=== PATIENT | female | born 1955 | race Caucasian/White ===

== ENCOUNTER 2019-05-05 00:18 | Outpatient (CLI) | payer OTHER, SELFPAY ==
--- NOTE | 2019-05-05 16:00 | DI.MAMMO_ITS ---
SYMPTOM/DIAGNOSIS: SCREENING,Z12.31 MAMMOGRAMS: Mammograms were interpreted according to the usual protocol including computer analysis with CAD system, tomosynthesis and C view imaging. The breasts are of moderate density with fairly symmetrical distribution of fibroglandular tissue. No dominant mass or clumped microcalcification is identified in either breast. Current examination is compared with previous examinations including 03/2018 and there has been no gross interval change in appearance in comparison with the previous studies. CONCLUSION: No specific evidence of malignancy at this time. Routine screening examinations are suggested at yearly intervals in this age group according to the ACS/ACR guidelines. Category 1. Breast density, Category B. MQSA ASSESSMENT OF FINDINGS: Negative. Category 1. Patient will receive a letter notifying them of these results. BI-RADS category B. There are scattered areas of fibroglandular density.
== END 2019-05-05 00:38 ==
PROVIDERS: PCP Family Medicine; Visit Provider Nurse Practitioner Family
DX: Z12.31 Encounter for screening mammogram for malignant neoplasm of breast (principal)
CPT/HCPCS: 77063; 77067

== ENCOUNTER 2020-08-19 02:21 | Outpatient (CLI) | payer OTHER, SELFPAY ==
[2020-08-19 11:15] LABS: Calculated LDL 200 mg/dL (<100); Cholesterol 286 mg/dL (<200); Glucose 95 mg/dL (74-106); HDL Cholesterol 75 mg/dL (40-60); Triglyceride 57 mg/dL (<150)
== END 2020-08-19 02:41 ==
PROVIDERS: PCP Family Medicine; Visit Provider Nurse Practitioner Family
DX: Z13.1 Encounter for screening for diabetes mellitus (principal); Z13.220 Encounter for screening for lipoid disorders
CPT/HCPCS: 36415; 80061; 82947

== ENCOUNTER 2020-08-19 02:50 | Outpatient (CLI) | payer OTHER, SELFPAY ==
--- NOTE | 2020-08-19 10:30 | DI.MAMMO_ITS ---
EXAM: MAMMO SCREENING CLINICAL HISTORY: screening TECHNIQUE: Mammograms were interpreted according to the usual protocol including computer analysis w [employer] CAD system, tomosynthesis and C-view imaging. COMPARISON: 2010 through 2018 FINDINGS: The breasts are composed of scattered fibroglandular densities, Breast Density category B. No suspicious masses or suspicious microcalcifications are seen. No skin thickening or abnormal axillary lymph nodes are seen. There has been no significant change from prior exams. IMPRESSION: BI-RADS Category 1, Negative mammogram Yearly screening mammography is recommended. Breast Density - Category B, scattered fibroglandular densities. A negative radiographic report should not delay biopsy if a dominant or clinically suspicious mass is present. Up to ten percent of cancers are not identified on mammography. A negative report may reinforce clinical impression. Adenosis and dense breasts may obscure an underlying neoplasm. False positive reports average 6 to 10%. Patient will receive a letter notifying them of these results.
== END 2020-08-19 03:10 ==
PROVIDERS: PCP Family Medicine; Visit Provider Nurse Practitioner Family
DX: Z12.31 Encounter for screening mammogram for malignant neoplasm of breast (principal)
CPT/HCPCS: 77063; 77067

== ENCOUNTER 2021-09-12 08:31 | Outpatient (CLI) | payer MEDICARE, SELFPAY ==
--- NOTE | 2021-09-12 11:38 | DI.MAMMO_ITS ---
Exam(s) MAMMO SCREENING EXAM: MAMMO SCREENING CLINICAL HISTORY: SCREENING, Z12.39 TECHNIQUE: Mammograms were interpreted according to the usual protocol including computer analysis w [employer] CAD system, tomosynthesis and C-view imaging. COMPARISON: 2011 through 2019 FINDINGS: The breasts are composed of scattered fibroglandular densities, Breast Density category B. No suspicious masses or suspicious microcalcifications are seen. No skin thickening or abnormal axillary lymph nodes are seen. There has been no significant change from prior exams. IMPRESSION: BI-RADS Category 1, Negative mammogram Yearly screening mammography is recommended. Breast Density - Category B, scattered fibroglandular densities. A negative radiographic report should not delay biopsy if a dominant or clinically suspicious mass is present. Up to ten percent of cancers are not identified on mammography. A negative report may reinforce clinical impression. Adenosis and dense breasts may obscure an underlying neoplasm. False positive reports average 6 to 10%. Patient will receive a letter notifying them of these results.
== END 2021-09-12 08:51 ==
PROVIDERS: PCP Family Medicine; Visit Provider Nurse Practitioner Family
DX: Z12.31 Encounter for screening mammogram for malignant neoplasm of breast (principal)
CPT/HCPCS: 77063; 77067

== ENCOUNTER → 2022-09-21 00:45 | Outpatient (CLI) | payer MEDICARE, SELFPAY ==
--- OUTSIDE RECORDS SUMMARY | 2022-09-21 00:49 | XMS_ITS | Encounter Summary ---
:1955 Author Organization [facility] Address [address] [place] [address] Care Team Providers Name Role Phone Rodrigo Smith MD Primary Care Provider Unavailable Encounter Details Date Type Department Care Team Description 01/23/2012 Results Only [facility] Gin Harry NP Laboratory Services - [address] [phone] Social History Tobacco Use Types Packs/Day Years Used Date Smoking Tobacco: Never Assessed Sex Assigned at Date Recorded Not on file documented as of this encounter Plan of Treatment Not on filedocumented as of this encounter Procedures Procedure Name Priority Date/Time Associated Diagnosis Comme nts PAP TEST- RESULT Routine 01/23/2012 0:00 EDT Resu lts for this ONLY procedure are i n the results section. documented in this encounter Results PAP TEST- RESULT ONLY (01/23/2012 0:00 EDT) Component Value Ref Test Analysis Performed At [facility] Range Method Time Signature Pathology CYTOPATHOLOGY REPORT [facility] Report: [facility] Reports generated via electronic interface contain original data; however they are lacking the format of the original report. Caution should be taken when reading/interpreting unformatte d reports. Name: ? INEZ EGAN ? Accession #: ? [id number] ? : ? 1955 (Age: 56) ??F ?Collect Da te: ? 01/23/2012 ? Location: ? [facility] ? Receive Date: ? 01/24/2012 ? Provider: GIN HARRY PROOF INSPECTOR Copy to: RODRIGO SMITH MD ? Final Report SPECIMEN ADEQUACY ? Satisfactory for Evaluation - assessment of transformation zone component not appl icable ( e.g. atrophy, vaginal sample, hysterectomy) GENERAL CATEGORIZATION ? Negative for Intraepithelial Lesion or Malignancy ?? Last Menstural Period: 09/05 Previous Gynecologic Pathology: ASC-US: Benign cellular changes: ASC-US: 07/02 HPV neg. Treatment History: Colposcopy: Other: Additional clinical information: Paps neg. since Specimen/Source: ??Pap Test, Cervix/Endocervix, ThinPr ep Imaging System with manual evaluation Document reviewed and electronically signed by: ? Elroy Foster, CT(ASCP) ? Report ??Date: 01/29/2012 14:17 HPV with Pap Test ? Date Ordered: ? 01/28/2012 ? Status: ?? Bhavya d Out ?Date Complete: ? 01/31/2012 ? By: ??System Interface ? Date Reported: ? 01/31/2012 ? Interpretation RESULT: Negative for HPV types 16, 18, 31, 33, 35, 39, 45, 5 1, 52, 56, 58, 59, and 68. Comments Document reviewed and electronically signed by: ? System Interface ? Report date: 01/31/2012 By the signature above, the attending physician certifies th at he/she has personally conducted a gross and/or microscopic examin ation of the described specimens and rendered or confirmed the above diagnosis. End of Report Specimen (Source) Anatomical Location Collection Method / Collectio n Time Received Time / Laterality Volume 01/23/2012 01/24/2012 Gin Harry NP PATHOLOGY ORDERABLES Performing Organization Address City/State/ZIP Code Phon e Number [facility] [address] [place] [address] SERVICES [facility] [address] [place] [address] documented in this encounter Visit Diagnoses Not on filedocumented in this encounter Care Teams Dairy Feed Sales Consultant Relationship Specialty Start Date End Date Rodrigo Smith MD PCP - General 03/01/09 documented as of this encounter
--- OUTSIDE RECORDS SUMMARY | 2022-09-21 00:49 | XMS_ITS | Encounter Summary ---
:1955 Author Organization [facility] Address [address] [place] [address] Care Team Providers Name Role Phone Unavailable Primary Care Provider Unavailable Encounter Details Date Type Department Care Team Description 02/28/2009 Orders Only [facility] Yosi Cooper MD [address] [address] [place], [place] [address] [phone] Social History Tobacco Use Types Packs/Day Years Used Date Smoking Tobacco: Never Assessed Sex Assigned at Date Recorded Not on file documented as of this encounter Plan of Treatment Not on filedocumented as of this encounter Procedures Procedure Name Priority Date/Time Associated Diagnosis Comme nts SURGICAL PATHOLOGY Routine 02/28/2009 0:00 EDT Re sults for this procedure are i n the results section. documented in this encounter Results SURGICAL PATHOLOGY (02/28/2009 0:00 EDT) Component Value Ref Test Analysis Performed At [facility] Method Time Signature Pathology SURGICAL PATHOLOGY REPORT ? [facility] Report: Reports generated via electr [employer] interface contain original data; ? [facility] however they are lacking the format of the original report. ? Caution should be taken when reading/interpreting unformatted reports. ? Name: ? JIGNESH, INEZ F ? Accession #: ? [id number] ? : ? 1955 (Age: 53) ??F ? Collec t Date: ? 02/28/2009 ? Location: ? [facility] ? R eceive Date: ? 02/28/2009 ? Provider: YOSI WALKO MD ? Copy to: THIEN SMITH MD ? Final Pathologic Diagnosis: ? Colon, descending, 45 cm, biopsy: ? - Colonic mucosa with increa sed intraepithelial lymphocytes and focal epithelial damage. ??See comment. ? Comment: ? There is a prominent lymphoid aggregate present, which may represent the ?? clinically identified thick ened fold; however, the background colonic mucosa ?? is abnormal with increased i ntraepithelial lymphocytes with focal flattening of the epithelium. ??These find ings are consistent with the diagnosis of lymphocytic colitis and may be seen in a ssociation with celiac disease, non-gluten food ? hypersensitivity, and/or jason g side effects. ??Clinical correlation is ? recommended. ??(Dr. Browning)/ elio ? Document reviewed and electr onically signed by: ? Lashonda Rodríguez MD ? Report ??Date: 03/01/2009 12 :28 ? By the signature above, the attending physician certifies that he/she has ? personally conducted a gross and/or microscopic examination of the described ? specimens and rendered or co nfirmed the above diagnosis. ? Specimen(s) Received: ? Bx 45 cm descending c olon ??thickened fold ? Clinical History: ? H/O colon adenomas ? Gross Description: ? Received in [facility]' s fixative labelled Jignesh, Inez and biopsy 45 cm ?? descending colon ??thickened fold is a single, mcconnell, irregular soft tissue ? measuring 0.3 x 0.3 x 0.3 cm . ??This is entirely submitted in one cassette. ??(Dr. Villagran)/[facility] ? End of Report ? Specimen (Source) Anatomical Collection Method Collection Time Re ceived Time Location / / Volume Laterality 02/28/2009 02/28/2009 15:2 5 EDT Yosi Minaya MD PATHOLOGY ORDERABLES Performing Organization Address City/State/ZIP Code Phon e Number [facility] [address] [place] [address] SERVICES [facility] [address] [place] [address] documented in this encounter Visit Diagnoses Not on filedocumented in this encounter
--- OUTSIDE RECORDS SUMMARY | 2022-09-21 00:49 | XMS_ITS | Encounter Summary ---
:1955 Author Organization [facility] Address [address] [place] [address] Care Team Providers Name Role Phone Rodrigo Castro MD Primary Care Provider Unavailable Encounter Details Date Type Department Care Team Description 03/31/2015 Results Only [facility]- [facility] Eloise Drake, [facility] [phone] [facility] [place] [address] (Wo rk) Social History Tobacco Use Types Packs/Day Years Used Date Smoking Tobacco: Never Assessed Sex Assigned at Date Recorded Not on file documented as of this encounter Plan of Treatment Not on filedocumented as of this encounter Procedures Procedure Name Priority Date/Time Associated Diagnosis Comme nts PAP TEST- RESULT Routine 03/31/2015 0:00 EDT Resu lts for this ONLY procedure are i n the results section. documented in this encounter Results PAP TEST- RESULT ONLY (03/31/2015 0:00 EDT) Component Value Ref Test Analysis Performed At [facility] Method Time Signature Pathology CYTOPATHOLOGY REPORT [facility] Report: CENTER Reports generated via electronic interface contain origina l data; LABORATORY however they are lacking the format of the original report. SERVICES Caution should be taken when reading/interpreting unformatte d reports. Name: ? INEZ EGAN ? Accession #: ? [id number] ? : ? 1955 (Age: [age]) ??F ?Collect Date: ? 2014 ? Location: ? [facility] ? Receive Date: ? 04/01/2015 ? Provider: ELOISE ARCE Copy to: ALLI MACDONALD MD ? Final Report SPECIMEN ADEQUACY ? Satisfactory for Evaluation - transformation zone component present - scant squamous epithelial component secondary to excessive mucus GENERAL CATEGORIZATION ? Negative for Intraepithelial Lesion or Malignancy ?? Last Menstrual Period: 5 years ago Specimen/Source: ??Pap Test, Cervix/Endocervix, ThinPr ep Imaging System with manual evaluation Document reviewed and electronically signed by: ? Elroy Foster, CT(ASCP) ? Report ??Date: 04/07/2015 11:28 HPV with Pap Test ? Date Ordered: ? 04/07/2015 ? Status: ?? Signed Out ?Date Complete: ? 04/11/2015 ? By: ??System I nterface ? Date Reported: ? 04/11/2015 ? Interpretation RESULT: Negative for HPV. No E6 or E7 mRNA is detected from HPV types 16,18,31,33,35, 39,45,51,52,56,58,59,66, and 68 by psychologist research assistant mediated amplification. Comments Document reviewed and electronically signed by: ? System Interface ? Report date: 04/11/2015 By the signature above, the attending physician certifies th at he/she has personally conducted a gross and/or microscopic examin ation of the described specimens and rendered or confirmed the above diagnosis. End of Report Specimen (Source) Anatomical Location Collection Method / Collectio n Time Received Time / Laterality Volume 03/31/2015 04/01/2015 Eloise E Noelle MINER PATHOLOGY ORDERABLES Performing Organization Address City/State/ZIP Code Phon e Number [facility] [address] [place] [address] SERVICES documented in this encounter Visit Diagnoses Not on filedocumented in this encounter Care Teams Security Sales Manager Relationship Specialty Start Date End Date Rodrigo Castro MD PCP - General 03/01/09 documented as of this encounter
--- OUTSIDE RECORDS SUMMARY | 2022-09-21 00:49 | XMS_ITS | Encounter Summary ---
:1955 Author Organization [facility] Address [address] [place] [address] Care Team Providers Name Role Phone Rodrigo Castro MD Primary Care Provider Unavailable Encounter Details Date Type Department Care Team Description 04/10/2018 Results Only [facility]- [facility] Eloise Drake, [facility] [phone] [facility] [place] [address] (Wo rk) Social History Tobacco Use Types Packs/Day Years Used Date Smoking Tobacco: Never Assessed Sex Assigned at Date Recorded Not on file documented as of this encounter Plan of Treatment Not on filedocumented as of this encounter Procedures Procedure Name Priority Date/Time Associated Diagnosis Comme nts PAP TEST- RESULT Routine 04/10/2018 0:00 EDT Resu lts for this ONLY procedure are i n the results section. documented in this encounter Results PAP TEST- RESULT ONLY (04/10/2018 0:00 EDT) Component Value Ref Test Analysis Performed At [facility] Method Time Signature Pathology CYTOPATHOLOGY REPORT [facility] Report: CENTER Reports generated via electronic interface contain origina l data; LABORATORY however they are lacking the format of the original report. SERVICES Caution should be taken when reading/interpreting unformatte d reports. Name: ? INEZ EGAN ? Accession #: ? [id number] ? : ? 1955 (Age: [age]) ??F ?Collect Date: ? 04/10/2018 ? Location: ? [facility] ? Receive Date: ? 04/11/2018 ? Provider: ELOISE DRAKE CLINICAL LABORATORY MANAGER Copy to: ALLI MACDONALD MD ? Final Report SPECIMEN ADEQUACY ? Satisfactory for Evaluation - transformation zone component present - scant squamous epithelial component GENERAL CATEGORIZATION ? Negative for Intraepithelial Lesion or Malignancy ?? Last Menstrual Period: age 54 Specimen/Source: ??Pap Test, Cervix/Endocervix, ThinPr ep Imaging System with manual evaluation Document reviewed and electronically signed by: ? Lashonda Henning, CT(ASCP) ? Report ??Date: 04/18/2018 09:49 HPV with Pap Test ? Date Ordered: ? 04/18/2018 ? Status: ?? Signed Out ?Date Complete: ? 04/21/2018 ? By: ??System I nterface ? Date Reported: ? 04/21/2018 ? Interpretation RESULT: Negative for HPV. No E6 or E7 mRNA is detected from HPV types 16,18,31,33,35, 39,45,51,52,56,58,59,66, and 68 by internist medical doctor md mediated amplification. Comments Document reviewed and electronically signed by: ? System Interface ? Report date: 04/21/2018 By the signature above, the attending physician certifies th at he/she has personally conducted a gross and/or microscopic examin ation of the described specimens and rendered or confirmed the above diagnosis. End of Report Specimen (Source) Anatomical Location Collection Method / Collectio n Time Received Time / Laterality Volume 04/10/2018 04/11/2018 Eloise Drake CLINICAL LABORATORY MANAGER PATHOLOGY ORDERABLES Performing Organization Address City/State/ZIP Code Phon e Number [facility] [address] [place] [address] SERVICES documented in this encounter Visit Diagnoses Not on filedocumented in this encounter Care Teams Home Insurance Agent Relationship Specialty Start Date End Date Rodrigo Castro MD PCP - General 03/01/09 documented as of this encounter
--- OUTSIDE RECORDS SUMMARY | 2022-09-21 00:50 | XMS_ITS | Encounter Summary ---
:1955 Author Organization [facility] [place] [address] Care Team Providers Name Role Phone Pasha, [place] GUPTA Primary Care Provider Reason for Visit Reason Comments Skin Check Encounter Details Date Type Department Care Team Description 09/28/2013 Office Visit Dermatology at Rodri Crow P[place] is (Primary [place] Dx) [address] [facility] [place] DERMATOLOGY [place], [place] [id number] [phone] Social History Tobacco Use Types Packs/Day Years Used Date Smoking Tobacco: Never Sex Assigned at Date Recorded Not on file documented as of this encounter Progress Notes Rodri Crow MD - 09/28/2013 12:00 PM EST Problem: Dermatitis behind ears and at base of occipital scalp. Inez follows up after last seeing me in 2004 for an urticarial allergic reaction. I had seen her prior to that for eczematous dermatitis. She has noted issues with itching and scaling behind both ears that is becoming more and more symptomatic and spreading and involving more and more of the area behind her ears, despite Cortaid yzyv-[id number]-[id number] cream. She also has a painful area on the lower nape of the neck that she is unable to have respond to the Cortaid. She denies any family history of psoriasis. She is otherwise well. She is on no medications. She is otherwise healthy and denies any significant recent stress. She uses a salon Biolage shampoo product when she shampoos on a roughly daily basis. Physical examination reveals a pleasant 58-year-old woman who has discrete erythema and scaling in the postauricular sulcus running along the entire length of the postauricular scalp. She does have some minor fissuring involved here as well. On the lower occipital scalp, she has a quarter-sized hyperkeratotic plaque, which has a psoriasiform appearance. The patient's fingernails have yoruba on them and I am unable to comment on pitting of the nails. She does not have any stigmata of psoriasis on the elbows or knees. She has no erythema or scaling on the nasolabial folds or in the glabella areas. Assessment and Plan: 1. 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 a. Recommend clobetasol cream, applying b.i.d. to affected areas until rash clears and then taper and DC, 30 grams dispensed with one refill. b. Recommend the use of ketoconazole shampoo using a q.o. shampoo basis, alternating with the Biolage shampoo, and rinsing out after three minutes, 120 mL dispensed with five refills. c. I expect that this will likely bring about good level of control of the dermatitis and hopefully clear it for her. She has no previous history of psoriasis, so hopefully this will go back in remission. We discussed, however, the possibility that it may be a chronic condition requiring p.r.n. applications of the cream and p.r.n. use of the shampoo. She will call me if there is no improvement. documented in this encounter Plan of Treatment Upcoming Encounters Date Type Specialty Care Team Description 10/12/2022 Office Visit Dermatology Rdori Crow MD [address] [facility] DERMATOLOGY [place], [place] [address] (Wo rk) documented as of this encounter Visit Diagnoses Diagnosis Psoriasis - Primary Other psoriasis documented in this encounter Care Teams Nursing Project Coordinator Relationship Specialty Start Date End Date [place] Pak DO PCP - General 09/28/[address] [place] [address] documented as of this encounter
--- OUTSIDE RECORDS SUMMARY | 2022-09-21 00:50 | XMS_ITS | Encounter Summary ---
:1955 Author Organization [facility] Address [address] [place] [address] Care Team Providers Name Role Phone Rodrigo Castro MD Primary Care Provider Unavailable Encounter Details Date Type Department Care Team Description 06/23/2003 Results Only [facility] - Gin Steinberg NP conversion [address] [place] [address] Social History Tobacco Use Types Packs/Day Years Used Date Smoking Tobacco: Never Assessed Sex Assigned at Date Recorded Not on file documented as of this encounter Plan of Treatment Not on filedocumented as of this encounter Procedures Procedure Name Priority Date/Time Associated Diagnosis Comme nts CYTOPATHOLOGY Routine 06/23/2003 0:00 EDT Results for this procedure are i n the results section . documented in this encounter Results CYTOPATHOLOGY (06/23/2003 0:00 EDT) Component Value Ref Test Analysis Performed At [facility] Range Method Time Signature Pathology CYTOPATHOLOGY REPORT [facility] Report: [facility] Reports generated via electronic interface contain original data; however they are lacking the format of the original report. Caution should be taken when reading/interpreting unformatte d reports. Name: ? INEZ EGAN ? Accession #: ? [id number] : ? 1955 (Age: 48) ??F ?Collect Date: ? 06/23/2003 Location: ? [facility] ? Receive Date: ? 06/24/2003 Provider: ?GIN HARRY BUSINESS ADVISOR Copy to: ? Specimen/Source: ?ThinPrep Pap Test, Cervix/Endoce rvix Last Menstrual Period: ? 06/09/03 Previous Gynecologic Pathology: ? ASC-US: Benign cellular changes: Treatment History: ? Colposcopy: no dysplasia Other: ? Additional clinical information: 1998, 1999, 2000 negative ? SPECIMEN ADEQUACY ? Satisfactory for Evaluation - transformation zone component present GENERAL CATEGORIZATION ? Negative for Intraepithelial Lesion or Malignancy ? Document reviewed and electronically signed by: ? LEONILA March(ASCP) ? Report Date: ??06/30/2003 08:45 End of Report Specimen (Source) Anatomical Location Collection Method / Collectio n Time Received Time / Laterality Volume 06/23/2003 06/24/2003 Gin Harry NP PATHOLOGY ORDERABLES Performing Organization Address City/State/ZIP Code Phon e Number [facility] [address] [place] [address] SERVICES [facility] [address] [place] [address] documented in this encounter Visit Diagnoses Not on filedocumented in this encounter Care Teams Car Installations Supervisor Relationship Specialty Start Date End Date Rodrigo Castro MD PCP - General 03/01/09 documented as of this encounter
--- OUTSIDE RECORDS SUMMARY | 2022-09-21 00:50 | XMS_ITS | Encounter Summary ---
:1955 Author Organization [facility] Address [address] [place] [address] Care Team Providers Name Role Phone Rodrigo Smith MD Primary Care Provider Unavailable Encounter Details Date Type Department Care Team Description 02/07/2005 Results Only [facility] - Barron Montoya MD conversion [address] [place] [phone] Social History Tobacco Use Types Packs/Day Years Used Date Smoking Tobacco: Never Assessed Sex Assigned at Date Recorded Not on file documented as of this encounter Plan of Treatment Not on filedocumented as of this encounter Procedures Procedure Name Priority Date/Time Associated Diagnosis Comme nts SURGICAL PATHOLOGY Routine 02/07/2005 0:00 EDT Re sults for this procedure are i n the results section. documented in this encounter Results SURGICAL PATHOLOGY (02/07/2005 0:00 EDT) Component Value Ref Test Analysis Performed At [facility] Method Time Signature Pathology SURGICAL PATHOLOGY REPORT MAURO OKEEFE Report: Reports generated via electronic interface contain simon nair data; [facility] however they are lacking the format of the original report. Caution should be taken when reading/interpreting unformatte d reports. Name: ? INEZ EGAN ? Accession #: ? [id number] ? : ? 1955 (Age: 49) ??F ? Collect Date: ? 02/07/2005 ? Location: ? [facility] ? Receive Date: ? 02/07/2005 ? Provider: MERLE NESS MD Copy to: RODRIGO SMITH MD ? Final Pathologic Diagnosis: ? 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 Document reviewed and electronically signed by: TERESA ERAZO MD Report ??Date: 02/09/2005 17:44 By the signature above, the attending physician certifies th at he/she has personally conducted a gross and/or microscopic examin ation of the described specimens and rendered or confirmed the above diagnosis. Specimen(s) Received: ? Polyp 10 cm Clinical History: ? Polyp rectal - screening Gross Description: ? Received in Hollande' s fixative labelled Ken and polyp 10 cm are two mcconnell-pink irregular soft tiss ue fragments measuring 0.5 x 0.5 x 0.3 cm and 0.6 x 0.5 x 0.3 cm. ??The specimen is entirely submitted in one ca ssette. ??(Annalisa Durán)/tmg ?? End of Report Specimen (Source) Anatomical Collection Method Collection Time Re ceived Time Location / / Volume Laterality 02/07/2005 02/07/2005 14:5 9 EDT Barron Ness MD PATHOLOGY ORDERABLES Performing Organization Address City/State/ZIP Code Phon e Number [facility] [address] [place] [address] SERVICES [facility] [address] [place] [address] documented in this encounter Visit Diagnoses Not on filedocumented in this encounter Care Teams Credentialer Relationship Specialty Start Date End Date Rodrigo Smith MD PCP - General 03/01/09 documented as of this encounter
--- OUTSIDE RECORDS SUMMARY | 2022-09-21 00:50 | XMS_ITS | Encounter Summary ---
:1955 Author Organization [facility] Address [address] [place] [address] Care Team Providers Name Role Phone Rodrigo Castro MD Primary Care Provider Unavailable Encounter Details Date Type Department Care Team Description 06/29/2005 Results Only [facility] - Eloise Hanson od, FNP conversion [address] [place] [phone] (Wo rk) Social History Tobacco Use Types Packs/Day Years Used Date Smoking Tobacco: Never Assessed Sex Assigned at Date Recorded Not on file documented as of this encounter Plan of Treatment Not on filedocumented as of this encounter Procedures Procedure Name Priority Date/Time Associated Comments Diagnosis HPV DETECTION, HIGH Routine 06/29/2005 10:30 Resu lts for this RISK TYPES EDT procedure are i n the results section. CYTOPATHOLOGY Routine 06/29/2005 0:00 Results for this EDT procedure are i n the results section. documented in this encounter Results HUMAN PAPILLOMA VIRUS DNA TEST (06/29/2005 10:30 EDT) [facility] Method Time Signature Specimen Cervix, MEMBRENO Description ThinPrep [facility] vial Result Negative for MEMBRENO HPV types [facility] 16, 18, 31, 33, 35, 39, 45, 51, 52, 56, 58, 59, and 68. Report Status Final [facility] [id number] [facility] Specimen Anatomical Collection Method Collection Time Receive d Time (Source) Location / / Volume Laterality 06/29/2005 10:30 07/16/2005 9:47 EDT EDT Eloise ARCE MICROBIOLOGY - GENERAL ORDER [place] Performing Organization Address City/State/ZIP Code Phon e Number [facility] [address] [place] [address] SERVICES [facility] [address] [place] [address] CYTOPATHOLOGY (06/29/2005 0:00 EDT) Component Value Ref Test Analysis Performed At [facility] Range Method Time Signature Pathology CYTOPATHOLOGY REPORT [facility] Report: [facility] Reports generated via electronic interface contain original data; however they are lacking the format of the original report. Caution should be taken when reading/interpreting unformatte d reports. Name: ? INEZ EGAN ? Accession #: ? [id number] : ? 1955 (Age: 50) ??F ?Collect Date: ? 06/29/2005 Location: ? [facility] ? Receive Date: ? 07/03/2005 Provider: ?[facility] Copy to: ? Specimen/Source: ? ThinPrep Pap Test, Cervix/Endocervix, processed on Transfer To ThinPrep Imaging System, with manual evaluation Last Menstrual Period: ? 06/13/05 Previous Gynecologic Pathology: ? ASC-US: Benign cellular changes: Treatment History: ? Colposcopy: Other: ? HPVA - HPV testing requested if ASC-US on the current ThinPr ep Pap test. ? SPECIMEN ADEQUACY ? Satisfactory for Evaluation - transformation zone component present GENERAL CATEGORIZATION ? Epithelial Cell Abnormality INTERPRETATION ? Endometrial cells present in a women equal to o r greater than age 40. Squamous Cell Abnormality - Atypical squamous cells, undetermined significance. EDUCATIONAL NOTES/RECOMMENDATIONS ? [facility] recommends harsh wing the 2001 Consensus Guidelines for the Management of Women with Cervical Cytological Abnormalities (SUNI,2002 ;287:2120-9). Management algorithms have b een distributed by [facility] and are available online at www.ASCCP.org. Note: ??The Pap test is not an accurate test for the screening of endometrial lesions and should not be used as a follow up in patients wi th clinical suspicion of endometrial pathology. There is limited data on the significance of marvin ign endometrial cells in post menopausal women on HRT. ??Clinical correlation is recommend ed. There is data showing that e ndometrial cells on Pap tests may be associated with endometrial/uterine abnormal ities in post menopausal women or in perimenopausal women with abnormal bleeding. Benign appearing endometrial cells on Pap tests are usually a normal finding in women with regular menstrual cycles, especially if the Pap test was collected during the first half of the menstrual cycle. ? Document reviewed and electronically signed by: ? MARILYN MATTHEWS MD ? Report Date: ??07/13/2005 16:27 End of Report Specimen (Source) Anatomical Location Collection Method / Collectio n Time Received Time / Laterality Volume 06/29/2005 07/03/2005 Eloise Drake [employer] PATHOLOGY ORDERABLES Performing Organization Address City/State/ZIP Code Phon e Number [facility] [address] [place] [address] SERVICES [facility] [address] [place] [address] documented in this encounter Visit Diagnoses Not on filedocumented in this encounter Care Teams Suture Winder Hand Relationship Specialty Start Date End Date Rodrigo Castro MD PCP - General 03/01/09 documented as of this encounter
--- OUTSIDE RECORDS SUMMARY | 2022-09-21 00:50 | XMS_ITS | Encounter Summary ---
:1955 Author Organization [facility] [place] [address] Care Team Providers Name Role Phone Pasha Dallas GUPTA Primary Care Provider Reason for Visit Reason Comments Psoriasis Encounter Details Date Type Department Care Team Description 10/05/2014 Office Visit Dermatology at [facility] Rodri Bull MD Psoriasis [address] [facility] [address] [place] [address] DERMATOLOGY [phone] [place], [place] [address] (Wo rk) Social History Tobacco Use Types Packs/Day Years Used Date Smoking Tobacco: Never Sex Assigned at Date Recorded Not on file documented as of this encounter Patient Instructions Patient InstructionsFrancheska Nichole LPN - 10/05/2014 2:39 PM EST [facility] Psoriasis: After Your Visit Your Care Instructions Psoriasis (say hgg-OK-eo-pavithra) is a long-term skin problem that causes thick, white, silvery, or red patches on the skin. The patches may be small or large, and they occur most often on the knees, elbows, scalp, hands, feet, or lower back. The skin may be scaly. If the condition is severe, your skin can become itchy and tender. Psoriasis also can be embarrassing if the patches are on visible areas. You can treat psoriasis with good care at home and with medicine from your doctor. You may put medicine on your skin and take pills or have shots to stop the redness and swelling. Your doctor also may suggest ultraviolet light treatments. Follow-up care is a dinero part of your treatment and safety. Be sure to make and go to all appointments, and call your doctor if you are having problems. It???s also a good idea to know your test resultsand keep a list of the medicines you take. How can you care for yourself at home? ?? If your doctor prescribes medicine, use it exactly as prescribed. Call your doctor if you think you are having a problem with your medicine. ?? Keep your skin moist. After bathing, put an ointment, cream, or lotion on your skin while it is still damp. This seals in moisture. Use ntva-zbf-huibpec products that your doctor suggests. These mayinclude Cetaphil, Lubriderm, or Eucerin. Petroleum jelly (such as Vaseline) and vegetable shortening(such as Crisco) also work. ?? If you have psoriasis on your scalp, use a mild tar shampoo, such as Neutrogena T/Gel, Polytar, or Zetar. Other scalp lotions, such as Dritho-Scalp, can be applied for several hours and then washed out. Shampoos that contain zinc pyrithione (such as Danex or Head & Shoulders), or selenium sulfide (such as Exsel or Selsun) may also help. ?? Gently soften and remove skin crusts. Put cream on the crusts and then peel off loose crusts. Removing crusts may help creams and lotions get into the skin. However, peel off crusts carefully so that you do not irritate your skin. ?? Follow your doctor's advice for sunlight or ultraviolet light treatment. ?? Avoid harsh skin products, such as those that contain alcohol. ?? Cover your skin in cold weather. ?? Try to prevent sunburn. Although short periods of sun exposure reduce psoriasis in most people, too much sun can damage the skin and cause skin cancer. In addition, sunburns can trigger psoriasis. Use sunscreen on areas of your skin that do not have psoriasis. Make sure the sunscreen blocks ultraviolet rays (both UVA and UVB) and has a sun protection factor (SPF) of at least 15. Use it every day, even when it is cloudy. Some doctors may recommend a higher SPF, such as 30. ?? Take care to avoid accidents such as cutting or scraping your skin. An injury to the skin can cause psoriasis patches to form anywhere on the body, including the area of the injury. ?? Avoid tight shoes, clothing, watchbands, and hats. These may irritate your skin. ?? Try to control stress and anxiety. They may cause psoriasis to appear suddenly or can make symptoms worse. ?? Use a vaporizer or humidifier to add moisture to your bedroom. Follow the directions for cleaningthe machine. ?? Seek support from family and friends. Talk to a counselor or other professional if you feel sad about your condition and need more help. When should you call for help? Call your doctor now or seek immediate medical care if: ?? You have signs of infection, such as: ?? Increased pain, swelling, warmth, or redness. ?? Red streaks leading from the area. ?? Pus draining from the area. ?? A fever. Watch closely for changes in your health, and be sure to contact your doctor if: ?? Your skin is more red and irritated than usual, especially if you also have another illness. ?? You need to talk to someone about how you are coping with the illness. Where can you learn more? Visit our health information library at [email or web address] You can also view health information on [employer], your personal patient account. Log in or sign up today. Enter U759 in the search box to learn more about Psoriasis: After Your Visit. ?? [phone] [employer]. Care instructions adapted under license by [facility]. This care instruction is for use with your licensed healthcare professional. If you have questionsabout a medical condition or this instruction, always ask your healthcare professional. [employer] disclaims any warranty or liability for your use of this information. Content Version: [id number]; Last Revised: June 02, 2013 documented in this encounter Progress Notes Rodri Crow MD - 10/05/2014 2:54 PM EST Problem: Followup psoriasiform dermatitis. Inez follows up and unfortunately now has itchy patches of dermatitis on her face, forehead, and in a sebopsoriasis distribution along the nasal sidewall, nasolabial folds, and in the eyebrows. She has been using ophthalmologic Neosporin/polymyxin with dexamethasone around her eyes, and clobetasol cream for her forehead. Neither of these really seems to be helping; it is only getting worse. When I last saw her in September 2013, she had a psoriatic plaque, which was quarter-size, over the lower occipital scalp, and she had involvement behind both ears. For her face, she uses L'Oreal foundation with sunscreen. She uses an Aveeno moisturizer but does not use any other facial products. Physical examination reveals erythematous plaques with fine overlying hyperkeratosis. These are circular, three present along her upper forehead and also present along the nasal sidewalls, nasolabial folds, and on her cheeks. They appear consistent with psoriasis. She has little or no involvement within the scalp today, just a little bit in the sebopsoriasis and around her ears and on the posterior auricular sulci. The patient has no stigmata of psoriasis on the elbows or knees. 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 a. I strongly suspect that she is developing an irritant dermatitis to a facial product and getting a psoriasiform reaction. b. I recommended that she stop the clobetasol and stop the neomycin/polymyxin plus dexamethasone, and also stop her L'Oreal foundation. c. Instead, I gave a short course of methotrexate, taking six of the 2.5-mg tablets p.o. each week for four weeks, then return to clinic; #30 dispensed with one refill. d. I recommended that she use Cetaphil facial moisturizing lotion as needed for facial moisturizing, and use a sunscreen-free foundation to hide the erythematous patches on her face. e. I recommended return to clinic in a month for repeat check. Note: If doing better in a month, we will then taper down and off methotrexate and slowly add back one product at a time to see which of these might have been triggering her facial dermatitis. COPY: Arpit Pak D.O. documented in this encounter Plan of Treatment Upcoming Encounters Date Type Specialty Care Team Description 10/12/2022 Office Visit Dermatology Rodri Crow MD [address] [facility] DERMATOLOGY [place], [place] [address] (Wo rk) documented as of this encounter Visit Diagnoses Diagnosis Psoriasis Other psoriasis documented in this encounter Care Teams Commodity Management Specialist Relationship Specialty Start Date End Date Dallas Pak DO PCP - General 09/28/[address] [place] [address] documented as of this encounter
--- OUTSIDE RECORDS SUMMARY | 2022-09-21 00:50 | XMS_ITS | Encounter Summary ---
:1955 Author Organization [facility] Address [address] [place] [address] Care Team Providers Name Role Phone Rodrigo Castro MD Primary Care Provider Unavailable Encounter Details Date Type Department Care Team Description 02/14/2000 Results Only [facility] - Gin Steinberg NP conversion [address] [place] [address] Social History Tobacco Use Types Packs/Day Years Used Date Smoking Tobacco: Never Assessed Sex Assigned at Date Recorded Not on file documented as of this encounter Plan of Treatment Not on filedocumented as of this encounter Procedures Procedure Name Priority Date/Time Associated Diagnosis Comme [facility] CYTOPATHOLOGY Routine 02/14/2000 13:34 EDT Result s for this procedure are i n the results section . documented in this encounter Results CYTOPATHOLOGY (02/14/2000 13:34 EDT) Component Value Ref Test Analysis Performed At [facility] Method Time Signature Pathology CYTOPATHOLOGY REPORT [facility] Report: [facility] Reports generated via electronic interface contain original data; however they are lacking the format of the original report. Caution should be taken when reading/interpreting unformatte d reports. Name: ? INEZ EGAN ? Accession #: ? [id number] : ? 1955 (Age: 44) ??F ?Collect Date: ? 02/14/2000 Location: ?Receive Date: ? 0 02/14/2000 Provider: ?GIN HARRY NP Copy to: ?GIN HARRY NP ? Specimen/Source: ?Senior Marketing Manager ThinPrep Last Menstrual Period: ? GYNECOLOGIC ??CYTOPATHOLOGY ??RE PORT Name: JIGNESH,INEZ F ?FA C : 1955 ?? 44Y F ?Client ID: [id number] SS#: ? Clinician: ALEXIS YAÑEZ, HINA ?? Location: [facility] ??Copy to: ?? Specimen: ?Senior Marketing Manager ThinPrep ? Source: Cervix/Endocervix ?Collected: 02/12/00 ? Received: 02/14/2000 ?LMP: 01/27/00 ? Hormone Therapy: No ? : No ? Radiation Therapy: No ?? Post : No ?Chemotherapy: No ?IUD: No ? Prev Abnormal Pap: Yes ?? Clinical Hx: ASCUS R/O NATHALY. Colpo, no Dysplasia. ? Benign Cellular Changes, reactive inflamm ation. ? WNL. ?(Blank bhat indicate information not provided on req uisition) SPECIMEN ADEQUACY: ? Satisfactory For Evaluation ?? GENERAL CATEGORIZATION: ? WITHIN NORMAL LIMITS ? Reviewed And Electronically Signed By: ? Andrei Elaine Jr ., CT(ASCP) ? Report Date: ?? 0 02/19/2000 [facility] Archived Tests - Final Diagnosis Text Field: Clinical History : ; CUS R/O NATHALY. Colpo, no Dysplasia. Benign Cellular Changes, reactive inflammation. WNL. ? Document reviewed and electronically signed by: ? Conversion ? Report Date: ??02/19/2000 00:00 End of Report Specimen Anatomical Collection Method Collection Time Receive d Time (Source) Location / / Volume Laterality 02/14/2000 13:34 02/14/2000 EDT 13:35 EDT Gin Harry NP PATHOLOGY ORDERABLES Performing Organization Address City/State/ZIP Code Phon e Number [facility] [address] [place] [address] SERVICES [facility] [address] [place] [address] documented in this encounter Visit Diagnoses Not on filedocumented in this encounter Care Teams Control Integration Engineer Relationship Specialty Start Date End Date Rodrigo Castro MD PCP - General 03/01/09 documented as of this encounter
--- OUTSIDE RECORDS SUMMARY | 2022-09-21 00:50 | XMS_ITS | Encounter Summary ---
:1955 Author Organization [facility] Address [address] [place] [address] Care Team Providers Name Role Phone Rodrigo Castro MD Primary Care Provider Unavailable Encounter Details Date Type Department Care Team Description 12/09/2006 Results Only [facility] - Gin Steinberg NP conversion [address] [place] [address] Social History Tobacco Use Types Packs/Day Years Used Date Smoking Tobacco: Never Assessed Sex Assigned at Date Recorded Not on file documented as of this encounter Plan of Treatment Not on filedocumented as of this encounter Procedures Procedure Name Priority Date/Time Associated Diagnosis Comme [facility] CYTOPATHOLOGY Routine 12/09/2006 0:00 EST Results for this procedure are i n the results section . documented in this encounter Results CYTOPATHOLOGY (12/09/2006 0:00 EST) Component Value Ref Test Analysis Performed At [facility] Method Time Signature Pathology CYTOPATHOLOGY REPORT [facility] Report: [facility] Reports generated via electronic interface contain original data; however they are lacking the format of the original report. Caution should be taken when reading/interpreting unformatte d reports. Name: ? INEZ EGAN ? Accession #: ? [id number] : ? 1955 (Age: 51) ??F ?Collect Date: ? 12/09/2006 Location: ? [facility] ? Receive Date: ? 12/09/2006 Provider: ?GIN HARRY SOUND INSTALLATION WORKER Copy to: ? Specimen/Source: ? ThinPrep Pap Test, Cervix/Endocervix, processed on Fluentify ThinPrep Imaging System, with manual evaluation Last Menstrual Period: ? 11/25/06 Previous Gynecologic Pathology: ? ASC-US: and 06/29/05 Benign cellular changes: Treatment History: ? Colposcopy: Other: ? HPVA - HPV testing requested if ASC-US on the current ThinPr ep Pap test. ? SPECIMEN ADEQUACY ? Satisfactory for Evaluation - transformation zone component present GENERAL CATEGORIZATION ? Negative for Intraepithelial Lesion or Malignancy ? Document reviewed and electronically signed by: ? LEONILA Fernandez(ASCP) ? Report Date: ??12/12/2006 14:25 End of Report Specimen (Source) Anatomical Location Collection Method / Collectio n Time Received Time / Laterality Volume 12/09/2006 12/09/2006 Gin Harry NP PATHOLOGY ORDERABLES Performing Organization Address City/State/ZIP Code Phon e Number [facility] [address] [place] [address] SERVICES [facility] [address] [place] [address] documented in this encounter Visit Diagnoses Not on filedocumented in this encounter Care Teams Development Analyst Relationship Specialty Start Date End Date Rodrigo Castro MD PCP - General 03/01/09 documented as of this encounter
--- OUTSIDE RECORDS SUMMARY | 2022-09-21 00:50 | XMS_ITS | Encounter Summary ---
:[address] [facility] [place] Address [address] [place] [address] Care Team Providers Name Role Phone Rodrigo Castro MD Primary Care Provider Unavailable Encounter Details Date Type Department Care Team Description 01/03/2009 Before PRISM Converted [facility] - Ignacio Harry, Visit (Maple) Maple conversion COURT OPERATIONS CLERK [address] [place] [address] Social History Tobacco Use Types Packs/Day Years Used Date Smoking Tobacco: Never Assessed Sex Assigned at Date Recorded Not on file documented as of this encounter Plan of Treatment Not on filedocumented as of this encounter Procedures Procedure Name Priority Date/Time Associated Comments Diagnosis HPV DETECTION, HIGH Routine 01/03/2009 10:03 Resu lts for this RISK TYPES EDT procedure are i n the results section. CYTOPATHOLOGY Routine 01/03/2009 0:00 Results for this EDT procedure are i n the results section. documented in this encounter Results HUMAN PAPILLOMA VIRUS DNA TEST (01/03/2009 10:03 EDT) [facility] Method Time Signature Specimen Cervix, [place] Description ThinPrep [facility] vial Result Negative for [place] HPV types [facility] 16, 18, 31, 33, 35, 39, 45, 51, 52, 56, 58, 59, and 68. Report Status Final [place] 01/12/2009 [facility] Specimen Anatomical Collection Method Collection Time Receive d Time (Source) Location / / Volume Laterality 01/03/2009 10:03 01/10/2009 EDT 10:[address] OPERATIONS CLERK MICROBIOLOGY - GENERAL ORDER [place] Performing Organization Address City/State/ZIP Code Phon e Number [facility] [address] [place] [address] SERVICES [place] [facility] [address] [place] [address] CYTOPATHOLOGY (01/03/2009 0:00 EDT) Component Value Ref Test Analysis Performed At [facility] Range Method Time Signature Pathology CYTOPATHOLOGY REPORT ? [facility] Report: ? [facility] Reports generated via electr onic interface contain original data; ? however they are lacking the format of the original report. ? Caution should be taken when reading/interpreting unformatted reports. ? Name: ? NIEZ EGAN ? Accession #: ? [id number] ? : ? 1955 (Age: 53) ??F ?Collect Date: ? 01/03/2009 ? Location: ? [facility] ? Receive Date: ? 01/04/2009 ? Provider: ?GIN M RO WLETT COURT OPERATIONS CLERK ? Copy to: ? Specimen/Source: ? Pap Test, Cervix/Endocervix, ThinPrep Imaging System ? with manual evaluation ? Last Menstrual Period: ? 11/25/08 ? Previous Gynecologic Patholo gy: ? ASC-US: 3/98, 9/05 ? Benign cellular changes: 11/ 98 ? Treatment History: ? Colposcopy: 5/98 ? Other: ? HPVDX - HPV testing requeste d regardless of diagnosis on current ThinPrep Pap ?? test. ? SPECIMEN ADEQUACY ? Satisfactory for Eval uation ? - transformation zone compon ent present ? GENERAL CATEGORIZATION ? Negative for Intraepi thelial Lesion or Malignancy ? Document reviewed and electr onically signed by: ? Gabriela Roldan, SCT( ASCP) ? Report Date: ??03/13/ 2009 15:48 ? End of Report ? Specimen (Source) Anatomical Location Collection Method / Collectio n Time Received Time / Laterality Volume 01/03/2009 01/04/[address] OPERATIONS CLERK PATHOLOGY ORDERABLES Performing Organization Address City/State/ZIP Code Phon e Number [facility] [address] [place] [address] SERVICES [facility] [address] [place] [address] documented in this encounter Visit Diagnoses Not on filedocumented in this encounter Care Teams Director Airport Relationship Specialty Start Date End Date Rodrigo Castro MD PCP - General 03/01/09 documented as of this encounter
--- OUTSIDE RECORDS SUMMARY | 2022-09-21 00:50 | XMS_ITS | Encounter Summary ---
:1955 Author Organization [facility] [place] [address] Care Team Providers Name Role Phone Pasha Dallas GUPTA Primary Care Provider Reason for Visit Reason Comments Follow-up Encounter Details Date Type Department Care Team Description 12/10[facility]2014 [facility] Cheri VASQUEZ dermatitis [address] [facility] [place] B DERMATOLOGY [place], [place] [id number] [phone] Social History Tobacco Use Types Packs/Day Years Used Date Smoking Tobacco: Never Sex Assigned at Date Recorded Not on file documented as of this encounter Patient Instructions Patient InstructionsFrancheska Nichole LPN - 12/10/2014 8:41 AM EST Images from the original note were not included. [facility] Psoriasis: After Your Visit Your Care Instructions Psoriasis (say lxf-TJ-vx-pavithra) is a long-term skin problem that causes [...] still damp. This seals in moisture. Use ukjo-ijp-ixukeql products that your doctor suggests. These mayinclude [...] more? Visit our health information library at [email or web address] You can also view health information on [email or web address], your personal patient account. Log in or sign up today. Enter U759 in the search box to learn more about Psoriasis: After Your Visit. ?? [id number] [employer]. Care instructions adapted under license by [facility]. This care instruction is for use with your licensed healthcare professional. If you have questionsabout a medical condition or this instruction, always ask your healthcare professional. [employer] disclaims any warranty or liability for your use of this information. Content Version: [id number]; Current as of: January 06, 2014 documented in this encounter Progress Notes Rodri Crow MD - 12/10/2014 8:56 AM EST Problem: Followup psoriasiform dermatitis. Inez follows up, and despite avoidance of her previous skin care products, just using Cetaphil, and being on methotrexate for potential psoriasiform dermatitis/seborrheic dermatitis, she is only marginally improved. She still has erythematous patches on the upper forehead, no longer on the nasal sidewalls, but still a little bit on the top of her right ear and a little bit on the postauricular scalp. The inferior eyelids and infraorbital folds are much better. Assessment and Plan: Facial dermatitis, forehead and periauricular areas remaining, question possible allergic contact precipitant. a. Hair dyes certainly could be a factor, but also one of her different skin care/makeup products would be highly suspect. Given the patchy nature of this, I would wonder about a formaldehyde releaser. b. I would recommend that the patient be seen by Dr. Watson [place] [facility] [place] c. The patient has completed methotrexate; I will not renew. d. Continue to just use Cetaphil facial moisturizing lotion as needed as a moisturizer. e. Return to clinic here will be following patch testing with Dr. Watson. COPY: Dallas Pak D.O. documented in this encounter Plan of Treatment Upcoming Encounters Date Type Specialty Care Team Description 10/12/2022 Office Visit Dermatology Rodri Crow MD [address] [facility] DERMATOLOGY [place], [place] [address] (Wo rk) documented as of this encounter Visit Diagnoses Diagnosis Allergic contact dermatitis Contact dermatitis and other eczema, due to unspecified cause documented in this encounter Care Teams Drying Machine Operator Package Yarns Relationship Specialty Start Date End Date Dallas Pak DO PCP - General 09/28/[address] [place] [address] documented as of this encounter
--- OUTSIDE RECORDS SUMMARY | 2022-09-21 00:50 | XMS_ITS | Encounter Summary ---
:1955 Author Organization [facility] [place] [address] Care Team Providers Name Role Phone PashaDallas flores DO Primary Care Provider Encounter Details Date Type Department Care Team Description 11/09/2014 Office Visit Dermatology at [facility] Rodri Crow MD Dermatitis [address] [facility] [address] [place] [address] DERMATOLOGY [phone] [place], [place] [address] (Wo rk) Social History Tobacco Use Types Packs/Day Years Used Date Smoking Tobacco: Never Sex Assigned at Date Recorded Not on file documented as of this encounter Progress Notes Rodri Crow MD - 11/09/2014 9:03 AM EST Problem: Followup psoriasiform dermatitis. Inez follows up and is better but still has outbreaks and must use, at least on a weekly basis, the clobetasol cream for her forehead. She has switched and used a simpler makeup, switching from her [employer] foundation. She stopped the neomycin/polymyxin plus dexamethasone. She has been taking her methotrexate and tolerating this well. She is using Cetaphil as a facial moisturizer. Physical examination reveals still some thin, erythematous plaques on the upper forehead and a little bit on the nasal sidewalls. She has little in the way of involvement within the scalp today, and nothing on the nape of the neck. The inferior eyelids and infraorbital fold areas are much better, and actually the nasal sidewall area is much better. Assessment and Plan: Psoriasiform dermatitis, psoriasis, question possible allergic contact precipitant. a. I recommended the patient discontinue now all facial makeup. b. Try to minimize clobetasol applications. c. Continue methotrexate, taking six of the 2.5-mg tablets per week for four more weeks, then return to clinic. d. Continue Cetaphil facial moisturizing lotion as needed for moisturizer. e. If the patient is still having intermittent weekly flares of her dermatitis, I would recommend patch testing with Dr. Watson. COPY: Dallas Pak D.O. documented in this encounter Plan of Treatment Upcoming Encounters Date Type Specialty Care Team Description 10/12/2022 Office Visit Dermatology Rodri Crow MD [address] [place] [address] DERMATOLOGY [place], [place] [address] (Wo rk) documented as of this encounter Visit Diagnoses Diagnosis Dermatitis Contact dermatitis and other eczema, due to unspecified cause documented in this encounter Care Teams Hunter Skin Diver Relationship Specialty Start Date End Date Dallas Pak DO PCP - General 09/28/[address] [place] [address] documented as of this encounter
--- OUTSIDE RECORDS SUMMARY | 2022-09-21 00:50 | XMS_ITS | Encounter Summary ---
:1955 Author Organization [facility] Address [address] [place] [address] Care Team Providers Name Role Phone Rodrigo Castro MD Primary Care Provider Unavailable Encounter Details Date Type Department Care Team Description 06/26/2004 Results Only [facility] - Gin Steinberg NP conversion [address] [place] [address] Social History Tobacco Use Types Packs/Day Years Used Date Smoking Tobacco: Never Assessed Sex Assigned at Date Recorded Not on file documented as of this encounter Plan of Treatment Not on filedocumented as of this encounter Procedures Procedure Name Priority Date/Time Associated Diagnosis Comme nts CYTOPATHOLOGY Routine 06/26/2004 0:00 EDT Results for this procedure are i n the results section . documented in this encounter Results CYTOPATHOLOGY (06/26/2004 0:00 EDT) Component Value Ref Test Analysis Performed At [facility] Range Method Time Signature Pathology CYTOPATHOLOGY REPORT [facility] Report: [facility] Reports generated via electronic interface contain original data; however they are lacking the format of the original report. Caution should be taken when reading/interpreting unformatte d reports. Name: ? INEZ EGAN ? Accession #: ? [id number] : ? 1955 (Age: 49) ??F ?Collect Date: ? 06/26/2004 Location: ? [facility] ? Receive Date: ? 06/27/2004 Provider: ?GIN HARRY CUFF SLITTER Copy to: ? Specimen/Source: ?ThinPrep Pap Test, Cervix/Endoce rvix Last Menstrual Period: ? 06/08/04 Previous Gynecologic Pathology: ? ASC-US: Benign cellular changes: Treatment History: ? Colposcopy: No dysplasia ? SPECIMEN ADEQUACY ? Satisfactory for Evaluation - transformation zone component present GENERAL CATEGORIZATION ? Negative for Intraepithelial Lesion or Malignancy ? Document reviewed and electronically signed by: ? LEONILA Godoy(ASCP) ? Report Date: ??06/28/2004 14:46 End of Report Specimen (Source) Anatomical Location Collection Method / Collectio n Time Received Time / Laterality Volume 06/26/2004 06/27/2004 Gin Hrary NP PATHOLOGY ORDERABLES Performing Organization Address City/State/ZIP Code Phon e Number [facility] [address] [place] [address] SERVICES [facility] [address] [place] [address] documented in this encounter Visit Diagnoses Not on filedocumented in this encounter Care Teams Visual Associate Relationship Specialty Start Date End Date Rodrigo Castro MD PCP - General 03/01/09 documented as of this encounter
--- NOTE | 2022-09-21 07:45 | DI.MAMMO_ITS ---
Exam(s) MAMMO SCREENING EXAM: MAMMO SCREENING CLINICAL HISTORY: screening Z12.39 TECHNIQUE: Mammograms were interpreted according to the usual protocol including computer analysis w [employer] CAD system, tomosynthesis and C-view imaging. COMPARISON: FINDINGS: The breasts are of moderate density with fairly symmetrical distribution of fibroglandular tissue. N o dominant mass or clumped microcalcification is identified in either breast. The current examinatio n is compared with previous examinations including August 2021 and there has been no gross interval change in appearance in comparison with the prior studies. IMPRESSION: No specific evidence of malignancy at this time. Routine screening examinations are suggested at yea rly intervals in this age group according to the ACS ACR guidelines. BI-RADS Category 1 - Negative Breast Density - Category B - Scattered areas of fibroglandular density
== END ==
PROVIDERS: PCP Nurse Practitioner Family; Visit Provider Nurse Practitioner Women's Health
DX: Z12.31 Encounter for screening mammogram for malignant neoplasm of breast (principal)
CPT/HCPCS: 77063; 77067

== ENCOUNTER 2023-09-16 14:38 | Outpatient (CLI) | payer MEDICARE, SELFPAY ==
[2023-09-16 11:39] LABS: Calculated LDL 187 mg/dL (<100); Cholesterol 281 mg/dL (<200); HDL Cholesterol 74 mg/dL (40-60); Triglyceride 102 mg/dL (<150)
== END 2023-09-16 14:39 | disposition home or self-care (01) ==
LOC: LBO 14:38
PROVIDERS: Visit Provider Obstetrics & Gynecology
DX: E78.00 Pure hypercholesterolemia, unspecified (principal)
CPT/HCPCS: 36415; 80061

== ENCOUNTER → 2023-09-25 02:14 | Outpatient (CLI) | payer MEDICARE, SELFPAY ==
--- NOTE | 2023-09-25 12:45 | DI.MAMMO_ITS ---
Exam(s) MAMMO SCREENING EXAM: MAMMO SCREENING CLINICAL HISTORY: screening,z12.39 TECHNIQUE: Bilateral full field digital CC and MLO mammographic images were obtained with 3D tomosyn thesis and utilizing computer aided detection (CAD). COMPARISON: Available for comparison. FINDINGS: Masses/Architectural Distortion: None seen. Microcalcifications: No suspicious pleomorphic-type are seen. Skin Thickening/Nipple Retraction: None. IMPRESSION: 1. No significant interval change with no specific features of malignancy noted. 2. Unless there is more urgent need, screening mammography is recommended, as per [employer] guidelines. BI-RADS Category 1 - Negative Breast Density - Category B - Scattered areas of fibroglandular density Breast density category C or D implies that the patient has dense breast tissue. Dense breast tissue is very common and is not abnormal but dense breast tissue can make it harder to find cancer on a ma mmogram. Also, dense breast tissue may increase their breast cancer risk. This information about the result of the mammogram report was provided to the patient to raise their awareness. Use this report when you speak with the patient about their risks for breast cancer, which includes their family hist ory. At that time, you may recommend for more screening tests (Ultrasound or MRI) as they might be us eful based on their risk. A negative radiographic report should not delay biopsy if a dominant or clinically suspicious mass is present. Up to ten percent of cancers are not identified on mammography. A negative report may reinforce clinical impression. Adenosis and dense breasts may obscure an underlying neoplasm. False positive reports average 6 to 10%. Patient will receive a letter notifying them of these results.
== END ==
PROVIDERS: Visit Provider Obstetrics & Gynecology
DX: Z12.31 Encounter for screening mammogram for malignant neoplasm of breast (principal)
CPT/HCPCS: 77063; 77067

== ENCOUNTER 2023-10-17 15:22 | Outpatient (CLI) | payer MEDICARE, SELFPAY ==
[2023-10-17 16:38] LABS: ALT 26 U/L (14-59); AST 17 U/L (15-37); Albumin 3.9 g/dL (3.4-5.0); Alkaline Phosphatase 52 U/L (46-116); Anion Gap 8.8 mmol/L (3-11); BUN 14 mg/dL (7-18); Bilirubin, Total 0.2 mg/dL (0.2-1.0); CO2 27.2 mmol/L (21.0-32.0); CREATININE 0.9 mg/dL (0.55-1.02); Calcium 9.5 mg/dL (8.5-10.1); Chloride 105 mmol/L (98-107); Estimated GFR 68.77 (mL/min/1.73m2); Glucose 95 mg/dL (74-106); Potassium 3.9 mmol/L (3.5-5.1); Sodium 141 mmol/L (136-145); TSH (W/Ref FT4) 3.22 uIU/mL (0.36-3.74); Total Protein 7.6 g/dL (6.4-8.2)
== END 2023-10-17 15:23 | disposition home or self-care (01) ==
LOC: LBO 15:22
PROVIDERS: Visit Provider Obstetrics & Gynecology
DX: E78.00 Pure hypercholesterolemia, unspecified (principal)
CPT/HCPCS: 36415; 80053; 84443

== ENCOUNTER 2024-09-29 14:09 | Outpatient (CLI) | payer MEDICARE, SELFPAY ==
[2024-09-29 14:36] LABS: Abs Immature Grans 0.02 10^3/uL (0.0-0.06); Absolute Basophil Count 0.06 10^3/uL (0.0-0.2); Absolute Eosinophil Count 0.08 10^3/uL (0.0-0.7); Absolute Lymphocyte Count 3.48 10^3/uL (1.2-3.4); Absolute Neutrophil Count 5.97 10^3/uL (1.2-6.7); Basophils % 0.6 %; Eosinophils % 0.7 %; HCT 44.2 % (36.0-46.0); HGB 14.2 g/dL (11.2-15.7); Immature Grans % 0.2 %; Lymphocytes % 32.5 %; MCH 28.3 pg (27.0-33.0); MCHC 32.1 % (32.0-36.0); MCV 88 fL (80-95); MPV 11.9 fL (8.0-11.0); Monocytes % 10.3 %; Neutrophils % 55.7 %; Platelet Count 296 10^3/uL (130-400); RBC 5.02 10^6/uL (3.93-5.22); RDW 14.2 % (11.7-14.6); RDW-SD 46.1 fL; WBC 10.71 10^3/uL (4.4-10.8)
[2024-09-29 14:55] LABS: ALT 27 U/L (14-59); AST 15 U/L (15-37); Albumin 3.8 g/dL (3.4-5.0); Alkaline Phosphatase 65 U/L (46-116); Anion Gap 8.1 mmol/L (3-11); BUN 15 mg/dL (7-18); Bilirubin, Total 0.19 mg/dL (0.2-1.0); CO2 30.9 mmol/L (21.0-32.0); CREATININE 0.9 mg/dL (0.55-1.02); Calcium 9.5 mg/dL (8.5-10.1); Calculated LDL 174 mg/dL (<100); Chloride 104 mmol/L (98-107); Cholesterol 290 mg/dL (<200); Estimated GFR 68.35 (mL/min/1.73m2); Glucose 100 mg/dL (74-106); HDL Cholesterol 70 mg/dL (40-60); Sodium 143 mmol/L (136-145); TSH (W/Ref FT4) 5.16 uIU/mL (0.36-3.74); Total Protein 8.2 g/dL (6.4-8.2); Triglyceride 232 mg/dL (<150)
[2024-09-29 15:18] LABS: FREE T4 0.73 ng/dL (0.76-1.46)
== END 2024-09-29 14:10 | disposition home or self-care (01) ==
LOC: LBO 14:10
PROVIDERS: Visit Provider Obstetrics & Gynecology
DX: Z13.9 Encounter for screening, unspecified (principal)
CPT/HCPCS: 36415; 80053; 80061; 84439; 84443; 85025

== ENCOUNTER 2024-10-01 02:11 | Outpatient (CLI) | payer MEDICARE, SELFPAY ==
--- NOTE | 2024-10-01 08:50 | DI.MAMMO_ITS ---
Exam(s) MAMMO SCREENING EXAM: MAMMO SCREENING CLINICAL HISTORY: screening TECHNIQUE: Mammograms were interpreted according to the usual protocol including computer analysis w [employer] CAD system, tomosynthesis and C-view imaging. COMPARISON: 2014 through 2022 FINDINGS: The breasts are composed of scattered fibroglandular densities, Breast Density category B. No suspicious masses or suspicious microcalcifications are seen. No skin thickening or abnormal axillary lymph nodes are seen. There has been no significant change from prior exams. IMPRESSION: BI-RADS Category 1, Negative mammogram Yearly screening mammography is recommended. Breast Density - Category B, scattered fibroglandular densities. A negative radiographic report should not delay biopsy if a dominant or clinically suspicious mass is present. Up to ten percent of cancers are not identified on mammography. A negative report may reinforce clinical impression. Adenosis and dense breasts may obscure an underlying neoplasm. False positive reports average 6 to 10%. Patient will receive a letter notifying them of these results.
== END 2024-10-01 02:31 ==
LOC: DI 02:11
PROVIDERS: Visit Provider Obstetrics & Gynecology
DX: Z12.31 Encounter for screening mammogram for malignant neoplasm of breast (principal); R92.323 Mammographic fibroglandular density, bilateral breasts
CPT/HCPCS: 77063; 77067

== ENCOUNTER 2025-04-19 03:10 | Outpatient (CLI) | payer MEDICARE, SELFPAY ==
[2025-04-19 12:37] LABS: Calculated LDL 206 mg/dL (<100); Cholesterol 299 mg/dL (<200); HDL Cholesterol 73 mg/dL (>or=50); TSH (W/Ref FT4) 4.96 uIU/mL (0.36-3.74); Triglyceride 101 mg/dL (<150)
[2025-04-19 13:00] LABS: FREE T4 0.77 ng/dL (0.76-1.46)
== END 2025-04-19 03:11 | disposition home or self-care (01) ==
LOC: LOS 03:10
PROVIDERS: PCP Nurse Practitioner Family; Visit Provider Nurse Practitioner Family
DX: Z13.220 Encounter for screening for lipoid disorders (principal); R79.89 Other specified abnormal findings of blood chemistry
CPT/HCPCS: 36415; 80061; 84439; 84443

== ENCOUNTER 2025-09-10 17:11 | Emergency (ER) | payer MEDICARE, SELFPAY ==
[2025-09-10 17:14] VITALS: BP 162/87; PULSE 71; RESP 20; TEMP 36.9; O2SAT 98
--- NOTE | 2025-09-10 17:32 | W.ED.GENAD ---
Discharge Plan Disposition Patient Disposition: Home Condition: Stable Discharge Details Clinical Impression: Sprain of left foot Primary Care Provider: Hosea Roy ED Provider: Xavier Hernandez Home Meds and New Rx's Prescriptions: No Action omega-3 fatty acids 1,000 mg capsule 1,000 mg PO DAILY hydrocortisone 2.5 % cream 1 applic topical BID PRN tetanus-diphtheria toxoids-Td 2-2 Lf unit/0.5 mL suspension 0.5 ml IM ONCE Qty: 0.5 0RF calcium carbonate [Caltrate 600] 600 MG tablet 600 mg PO DAILY Qty: 2 multivitamin 1 EACH capsule 1 ea PO DAILY Discharge Instructions Instructions: Foot Sprain ED Additional Instructions: You were seen in the emergency department for the sprain of your left foot, there is no fracture on x-ray, you likely need to just ice it and elevate it and alternate heat to it as well as take Tylenol and ibuprofen, please follow-up with orthopedics for any complications and return for any emergent concerns. Stand Alone Forms: Portal Information Referrals: [facility] [Provider Group] Hosea Roy, [employer]INE[employer] [Primary Care Provider, Medicine] [facility] General Date/Time Provider Initiated Documentation: 09/10/25 17:17. HPI Narrative: 70 year-old female presents to ED today by POV/ambulating with a chief complaint of L foot pain from stepping out of the vehicle earlier today with onset around 1130. Quality described as pain at the base of the left great toe between that and the second toe, able to move the, no radiation to swelling, bruising, numbness, has a known bunion to this foot but the pain is not focal to her bunion. Severity is described as moderate. Palliating factors include nothing specific attempted. Provoking factors include weightbearing. Patient not anticoagulated. Related Data Home Medications Medication Instructions Recorded Confirmed calcium carbonate (Caltrate 600) 600 mg PO DAILY ##2 01/28/13 09/10/25 multivitamin 1 ea PO DAILY 01/28/13 09/10/25 omega-3 fatty acids 1,000 mg 1,000 mg PO DAILY 09/09/23 09/10/25 capsule hydrocortisone 2.5 % topical cream 1 applic topical BID PRN 09/29/24 09/10/25 tetanus-diphtheria toxoids-Td 2 Lf 0.5 ml IM ONCE #0.5 mL 10/15/24 09/10/25 unit-2 Lf unit/0.5 mL IM suspension Previous Rx's Medication Instructions Recorded tetanus-diphtheria toxoids-Td 2 Lf 0.5 ml IM ONCE #0.5 mL 10/15/24 unit-2 Lf unit/0.5 mL IM suspension Allergies Allergy/AdvReac Type Severity Reaction Status Date / Time No Known Allergies Allergy Verified 09/10/25 17:17 General Stated Complaint: Orthopedic MUSTAPHA: 4 Review of Systems All systems reviewed & are unremarkable except as noted in HPI and below Exam Narrative Exam Narrative: GENERAL APPEARANCE: Well-nourished, non-toxic, awake and alert, atraumatic, no acute distress. SKIN: Warm, pink, dry, intact, without rashes/lesions/ulcerations. HEAD: Normocephalic, atraumatic, normal hair distribution for gender/age. EYES: Normal conjunctiva, no exudates on lids/lashes. ENT: Nares patent, no circumoral cyanosis, no facial swelling NECK: Supple, trachea midline, painless cervical ROM. LUNGS/CHEST: Non-labored respirations, normal A/P diameter, symmetrical expansion, no chest wall deformity HEART (CV/PV): Regular rate, no peripheral edema, no JVD. ABDOMEN: Soft, non-distended, no guarding. MSK: minor tenderness between the left great toe and second toe without crepitus swelling, left dorsalis pedis pulse 2+, able to range the foot in all ranges of motion, moving all extremities without weakness, no cyanosis, spine midline without tenderness, normal curvature. NEURO: Mental Status AAOx4 - alert to person, place, time, events No facial droop, no forehead involvement. Motor: No focal weakness - strength 5/5 in bilateral UEs and LEs, proximal and distal, symmetric. Sensory: sensation intact to light touch globally. Gait normal: patient ambulated without ataxia into ED room. PSYCH: euthymic, cooperative, pleasant, appropriate speech Course Vital Signs Vital signs: Vital Signs Temperature 36.9 C 09/10/25 17:14 Pulse 71 09/10/25 17:14 Respiratory Rate 20 09/10/25 17:14 Blood Pressure 162/87 H 09/10/25 17:14 Pulse Oximetry 98 09/10/25 17:14 Temperature 36.9 C 09/10/25 17:14 Pulse 71 09/10/25 17:14 Respiratory Rate 20 09/10/25 17:14 Blood Pressure 162/87 H 09/10/25 17:14 Blood Pressure Position Sitting 09/10/25 17:14 Pulse Oximetry 98 09/10/25 17:14 Oxygen Delivery Method Room Air 09/10/25 17:14 Oxygen Flow Rate 0 09/10/25 17:14 Medical Decision Making This dictation utilizes [id number] dictation software and may contain unedited grammatical errors. 70 year-old female presents to ED today by POV/ambulating with a chief complaint of L foot pain from stepping out of the vehicle earlier today with onset around 1130. Quality described as pain at the base of the left great toe between that and the second toe, able to move the, no radiation to swelling, bruising, numbness, has a known bunion to this foot but the pain is not focal to her bunion. Severity is described as moderate. Palliating factors include nothing specific attempted. Provoking factors include weightbearing. Patients' medical history: Noncontributory. Family and social history: Noncontributory. Pertinent exam findings / vital signs include minor tenderness between the left great toe and second toe without crepitus swelling, left dorsalis pedis pulse 2+, able to range the foot in all ranges of motion. Differential / pathologies of concern include sprain, unlikely fracture. Diagnostic studies of: - X-ray L foot-no acute fracture seen. Interventions of: - Recommend RICE therapy and therapeutic dosing of Tylenol and ibuprofen and sturdy footwear. ED Course/Assessment/Plan: 70-year-old female was stepping out of a vehicle and has pain between her 1st and 2nd toe of the left foot, there is no abnormality on x-ray I suspect she has a minor sprain of the foot tendon or muscle, counseled on RICE therapy and therapeutic dosing of Tylenol and ibuprofen and following up with orthopedics for any complications or returning for any emergent concerns. Findings not consistent with fracture or neurovascular compromise. Disposition of sprain of left foot. Patient verbalized understanding of the plan and return to ED criteria and engaged in shared decision making. Medical Records Medical records reviewed: Yes I reviewed the patient's medical records. Imaging Data Radiologic Study: Attestation: I personally reviewed and interpreted this imaging study as follows: Imaging: X-Ray Radiologist's impression: EXAM: XR FOOT LT COMPLETE CLINICAL HISTORY: L foot pain. TECHNIQUE: 2D digital imaging was performed. Three views. COMPARISON: No exams were available for comparison FINDINGS: BONES: No acute fracture is present. No bony destructive lesion is seen. Plantar calcaneal spur. JOINTS: No dislocation present. Mild degenerative changes of the 1st MTP joint and mild 1st metatarsal varus and hallux valgus. SOFT TISSUE: Soft tissue swelling medial to the 1st metatarsal head. IMPRESSION: Mild degenerative changes and valgus. No acute abnormality. PFSH All Active Problems (Updated 09/10/25 @ 18:43 by AYLEEN Jones) Sprain of left foot (Acute) Hyperlipidemia (Acute) Heart murmur (Acute) Has had for years. Elevated TSH (Acute) Atrophic vaginitis (Acute 03/31/15) Surgical History Ligation of fallopian tube Tonsillectomy and adenoidectomy Colonoscopy - IV Sedation (08/26/15) DR.TERRY UP Extraction of cataract Bilateral MarchApril 2013 Family History Mother Diabetes Social History (Updated 10/15/24 @ 11:07 by Amee Bowman) Smoking/Tobacco Use Status: Never Second Hand Exposure: Yes Smoking risk assessment performed?: Yes Alcohol Intake: former Year quit: 1986 Previous attempts at quittin Drug use: Never Substance use type: does not use History History 2 Para 2 Hx # Term Pregnancies Multiple births Hx # Pregnancies Ectopic pregnancies AB induced Hx Number of Living Children AB spontaneous
--- NOTE | 2025-09-10 18:35 | DI.RAD_ITS ---
Exam(s) XR FOOT LT COMPLETE EXAM: XR FOOT LT COMPLETE CLINICAL HISTORY: L foot pain. TECHNIQUE: 2D digital imaging was performed. Three views. COMPARISON: No exams were available for comparison FINDINGS: BONES: No acute fracture is present. No bony destructive lesion is seen. Plantar calcaneal spur. JOINTS: No dislocation present. Mild degenerative changes of the 1st MTP joint and mild 1st metatarsal varus and hallux valgus. SOFT TISSUE: Soft tissue swelling medial to the 1st metatarsal head. IMPRESSION: Mild degenerative changes and valgus. No acute abnormality. DATA REPOSITORY: RADIATION DOSE DELIVERED:
== END 2025-09-10 18:51 | disposition home or self-care (01) ==
PROVIDERS: Emergency Provider Physician Assistant; PCP Nurse Practitioner Family
DX: S93.602A Unspecified sprain of left foot, initial encounter (principal); X58.XXXA Exposure to other specified factors, initial encounter
CPT/HCPCS: 99283 ×2; 73630

== ENCOUNTER → 2025-10-05 00:27 | Outpatient (CLI) | payer MEDICARE, SELFPAY ==
--- NOTE | 2025-10-05 06:45 | DI.MAMMO_ITS ---
Exam(s) MAMMO SCREENING EXAM: MAMMO SCREENING CLINICAL HISTORY: screening,Z12.39 TECHNIQUE: Mammograms were interpreted according to the usual protocol including computer analysis with CAD system, tomosynthesis and C-view imaging. COMPARISON: 2015 through 2023 FINDINGS: The breasts are composed of scattered fibroglandular densities, Breast Density category B. No suspicious masses or suspicious microcalcifications are seen. No skin thickening or abnormal axillary lymph nodes are seen. There has been no significant change from prior exams. IMPRESSION: BI-RADS Category 1, Negative mammogram Yearly screening mammography is recommended. Breast Density - Category B - There are scattered areas of fibroglandular density. Breast density Category C or D implies that the patient has dense breast tissue. Dense breast tissue can make it harder to find cancer on a mammogram. Dense breast tissue is also associated with an increased risk of breast cancer. This information about the result of the mammogram report was provided to the patient to raise their awareness. Use this report when you speak with the patient about their risks for breast cancer, which includes their family history. At that time, you may recommend additional screening tests (Ultrasound or MRI) as these tests may add significant information. A negative radiographic report should not delay biopsy if a dominant or clinically suspicious mass is present. Up to ten percent of cancers are not identified on mammography. A negative report may reinforce clinical impression. Adenosis and dense breasts may obscure an underlying neoplasm. False positive reports average 6 to 10%. Patient will receive a letter notifying them of these results.
== END ==
PROVIDERS: PCP Nurse Practitioner Family; Visit Provider Obstetrics & Gynecology
DX: Z12.31 Encounter for screening mammogram for malignant neoplasm of breast (principal); R92.323 Mammographic fibroglandular density, bilateral breasts
CPT/HCPCS: 77063; 77067